=== PATIENT | male | born 1985 | race Caucasian/White ===

== ENCOUNTER 2016-08-20 22:09 | Emergency (ER) | payer MEDICAID ==
[~2016-08-20] VITALS: Ht 160 cm; Wt 97.2 kg
[2016-08-20] MEDS ORDERED: SODIUM CHLORIDE 0.9% 1,000 ML IV ONE (22:43)
[2016-08-20] MEDS ORDERED: ONDANSETRON HCL 4MG/2ML VIAL IV STA (22:43)
[2016-08-20] MEDS ORDERED: ALBUTEROL (0.5%) 2.5MG/0.5ML NEB HHN ONE (22:45)
[2016-08-20 23:01] LABS: BASOPHILS % 0.5 % (0.0-2.0); EOSINOPHILS % 0.7 % (0.0-5.0); HEMATOCRIT. 46.4 % (42.0-52.0); HEMOGLOBIN. 15.9 g/dL (14.0-18.0); LYMPHOCYTES % 9.4 % (20.0-50.0); MEAN CORPUSCULAR HEMOGLOBIN 28.8 pg (28.0-32.0); MEAN CORPUSCULAR HGB CONC 34.3 g/dL (31.0-37.0); MEAN PLATELET VOLUME 8.6 fl (7.4-10.4); MONOCYTES % 6.2 % (2.0-8.0); NEUTROPHILS % 83.2 % (40.0-76.0); PLATELET 223 x1000/uL (130-400); RED BLOOD CELL COUNT 5.53 mill/uL (4.7-6.1); RED CELL DISTRIBUTION WIDTH 13.5 % (11.6-14.6); WHITE BLOOD COUNT 16.3 x1000/uL (4.5-11.0)
[2016-08-20 23:05] LABS: CHLORIDE 105 mEq/L (98-107); INDEX HEMOLYSI 1 (1-3); INDEX ICTERIC 1 (1-4); INDEX LIPEMIC 1 (1-3)
[2016-08-20 23:06] LABS: INR 1.1; PROTHROMBIN TIME 11.2 sec
[2016-08-20 23:14] LABS: ALANINE AMINOTRANSFERASE 146 IU/L (13-61); ALBUMIN 4.3 g/dL (3.4-5.0); ANION GAP 10; CALCIUM 8.2 mg/dL (8.5-10.1); CARBON DIOXIDE 27 mEq/L (21-32); LIPASE 115 IU/L (73-393); UREA NITROGEN BLOOD 11 mg/dL (7-21); eGFR > 60 mL/min (>60)
[2016-08-21 02:40] VITALS: BP 105/61
== END 2016-08-21 02:45 | disposition home or self-care (01) ==
LOC: ER 22:09
DX: J68.0 Bronchitis and pneumonitis due to chemicals, gases, fumes and vapors (principal); R11.2 Nausea with vomiting, unspecified; R10.13 Epigastric pain; R06.02 Shortness of breath
CPT/HCPCS: 36415; 71010; 80053; 83690; 85025; 85610; 94640; 96361; 96374; 99285; J2405; J7030; J7611

== ENCOUNTER 2017-03-04 16:21 | Emergency (ER) | payer SELFPAY ==
[~2017-03-04] VITALS: Ht 165.1 cm; Wt 95.0 kg
[2017-03-04] MEDS ORDERED: KETOROLAC 60MG/2ML VIAL IM ONE (21:30)
[2017-03-04] MEDS ORDERED: ACETAMINOPHEN 325MG TABLET PO ONE (22:45)
[2017-03-05 00:46] VITALS: BP 102/52
== END 2017-03-05 00:50 | disposition home or self-care (01) ==
LOC: ER 16:21
DX: R51 Headache (principal); R42 Dizziness and giddiness; Z90.49 Acquired absence of other specified parts of digestive tract
CPT/HCPCS: 96372; 99283; J1885

== ENCOUNTER 2017-12-08 17:44 | Emergency (ER) | payer MEDICAID ==
[~2017-12-08] VITALS: Ht 167.6 cm; Wt 100.0 kg
[2017-12-08 18:15] VITALS: BP 129/75
[2017-12-08] MEDS ORDERED: CIME800T PO (18:18)
[2017-12-08] MEDS ORDERED: IBUP-2030 PO (18:18)
[2017-12-08] MEDS ORDERED: CIPR-264 PO (18:18)
[2017-12-08] MEDS ORDERED: MORPHINE SULFATE 10 MG/ML CPJ IM ONE (20:45)
[2017-12-08] MEDS ORDERED: ONDANSETRON 4MG ODT PO ONE (20:45)
[2017-12-08] MEDS ORDERED: ONDANSETRON 4MG ODT PO SCH (21:18)
== END 2017-12-08 21:50 | disposition home or self-care (01) ==
LOC: ER 20:26
DX: H66.91 Otitis media, unspecified, right ear (principal); H60.91 Unspecified otitis externa, right ear; F41.9 Anxiety disorder, unspecified
CPT/HCPCS: 96372; 99283; J2270; Q0162; Z7610

== ENCOUNTER 2018-10-26 15:31 | Emergency (ER) | payer SELFPAY ==
[~2018-10-26] VITALS: Ht 175.3 cm; Wt 102.0 kg
[~2018-10-26 15:31] MED LIST: CIME800T PO; CIPR-264 PO; IBUP-2030 PO
[2018-10-26] MEDS ORDERED: KETOROLAC 60MG/2ML VIAL IM STA (18:27)
[2018-10-26 20:02] LABS: CLARITY URINE CLEAR (CLEAR); COLOR URINE YELLOW (YELLOW); KETONES URINE NEGATIVE (NEGATIVE); LEUKOCYTE ESTERASE URINE NEGATIVE (NEGATIVE); NITRITE URINE NEGATIVE (NEGATIVE); OCCULT BLOOD URINE NEGATIVE (NEGATIVE); PH URINE 5.5 (4.5-8.0); PROTEIN URINE NEGATIVE (NEGATIVE); SPECIFIC GRAVITY URINE 1.012 (1.005-1.030); UROBILINOGEN URINE 0.2 E.U./dL (0.2-1.0)
[2018-10-26 20:34] VITALS: BP 110/76
== END 2018-10-26 20:37 | disposition home or self-care (01) ==
LOC: ER 15:31
DX: M54.5 Low back pain (principal); F41.9 Anxiety disorder, unspecified; Z79.899 Other long term (current) drug therapy; Z87.19 Personal history of other diseases of the digestive system; Z90.49 Acquired absence of other specified parts of digestive tract
CPT/HCPCS: 81003; 96372; 99283; J1885

== ENCOUNTER 2021-11-01 17:19 | Emergency (ER) | payer MEDICAID ==
[~2021-11-01] VITALS: Ht 167.6 cm; Wt 100.0 kg
[2021-11-01 17:23] VITALS: BP 142/82
[2021-11-01] MEDS ORDERED: ONDANSETRON HCL 4MG/2ML INJ IV STA (20:56)
[2021-11-01] MEDS ORDERED: MECLIZINE 25MG TABLET PO ONE (21:00)
[2021-11-01] MEDS ORDERED: SODIUM CHLORIDE 0.9% 1,000 ML IV ONE (21:00)
[2021-11-01 21:08] LABS: BASOPHILS % 0.4 % (0.0-2.0); EOSINOPHILS % 0.1 % (0.0-5.0); HEMATOCRIT. 48.5 % (42.0-52.0); HEMOGLOBIN. 16.5 g/dL (14.0-18.0); LYMPHOCYTES % 11.1 % (20.0-50.0); MEAN CORPUSCULAR HEMOGLOBIN 29.9 pg (28.0-32.0); MEAN CORPUSCULAR VOLUME 87.8 fL (80.0-94.0); MEAN PLATELET VOLUME 8.5 fl (7.4-10.4); MONOCYTES % 4.7 % (2.0-8.0); NEUTROPHILS % 83.7 % (40.0-76.0); PLATELET 193 x1000/uL (130-400); RED BLOOD CELL COUNT 5.53 mill/uL (4.7-6.1)
[2021-11-01 21:21] LABS: CHLORIDE 110 mEq/L (98-107)
[2021-11-01] MEDS ORDERED: MECL-217 MT (23:24)
== END 2021-11-01 23:52 | disposition home or self-care (01) ==
LOC: ER 17:19
DX: R42 Dizziness and giddiness (principal); F41.9 Anxiety disorder, unspecified; Z90.49 Acquired absence of other specified parts of digestive tract
CPT/HCPCS: 36415; 80053; 80320; 82962; 84484; 85025; 93005; 96361; 96374; 99284; J2405; J7030; J8597; G0480